=== PATIENT | female | born 2000 | race Caucasian/White ===

== ENCOUNTER 2020-08-10 10:45 | Emergency (ER) | payer BC, SELFPAY ==
[~2020-08-10] VITALS: Ht 165.1 cm; Wt 54.4 kg
[2020-08-10 10:57] VITALS: Ht 165.1 cm; Wt 54.4 kg
[2020-08-10 12:35] LABS: BASOPHIL % 0.6 % (0.2-1.3); CALCIUM 9.2 mg/dL (8.5-10.1); CARBON DIOXIDE 26.8 mmol/L (21-32); CHLORIDE SERUM 103 mmol/L (98-107); CREATININE SERUM 0.8 mg/dL (0.6-1.0); GFR1 > 60 mL/min; GLUCOSE SERUM 99 mg/dL (74-106); PLATELET COUNT 350 x10^3mcL (179-408); POTASSIUM SERUM 4.4 mmol/L (3.5-5.1); RED CELL DISTRIBUTION WIDTH 12.8 % (12.3-17.7); SODIUM SERUM 137 mmol/L (136-145)
[2020-08-10 12:44] LABS: ALBUMIN 3.7 g/dL (3.4-5.0); ALKALINE PHOSPHATASE 70 U/L (46-116); ALT/SGPT 28 U/L (14-59); AST/SGOT 20 U/L (15-37); BILIRUBIN TOTAL 0.29 mg/dL (0.20-1.00); CHOLESTEROL 180 mg/dL (<200); LIPASE 108 IU/L (73-393)
[2020-08-10 12:45] LABS: HDL CHOLESTEROL 71 mg/dL (40-60); T4(THYROXINE) 13.8 ug/dL (4.7-13.3); TOTAL PROTEIN, SERUM 8.3 g/dL (6.4-8.2)
[2020-08-10 14:31] LABS: microscopic required? NO
[2020-08-10 15:12] LABS: UA SPECIFIC GRAVITY 1.015 (1.005-1.035); urine erythrocyte NEGATIVE (NEGATIVE)
[2020-08-10 15:42] VITALS: BP 159/87
[2020-08-10 16:00] LABS: AMPHETAMINE QUAL UR NONE DETECTED (See below)
== END 2020-08-10 15:42 | disposition home or self-care (01) ==
LOC: ED 10:45
PROVIDERS: Emergency Medicine
DX: E05.90 Thyrotoxicosis, unspecified without thyrotoxic crisis or storm (principal); R00.0 Tachycardia, unspecified; F41.9 Anxiety disorder, unspecified; F12.20 Cannabis dependence, uncomplicated; Z20.828 Contact with and (suspected) exposure to other viral communicable diseases
CPT/HCPCS: 85378; G0480; J7030; U0003